=== PATIENT | male | born 1995 | race Caucasian/White ===

== ENCOUNTER 2017-06-02 16:05 | Emergency (ER) | payer OTHER ==
[~2017-06-02] VITALS: Ht 182.9 cm; Wt 71.0 kg
[2017-06-02 16:27] VITALS: Ht 182.9 cm; Wt 71.0 kg
--- NOTE | 2017-06-02 17:43 | DIAGNOSTIC IMAGING REPORT ---
MANDIBLE MIN 4 VIEWS ROUTINE CLINICAL HISTORY: 21 years-old Male presenting with Fall/right-sided mandible pain. TECHNIQUE: 4 views of the mandible were obtained. COMPARISON: None. FINDINGS: Paranasal sinuses and mastoid air cells grossly clear. The mandible is intact. Evidence of fracture or significant dental caries in the bilateral central incisors of the maxilla. IMPRESSION: 1. No evidence of mandibular fracture. 2. Evidence of fracture or significant dental caries in the bilateral maxillary central incisors. Electronically signed by: Chau Balderrama M.D. 06/02/2017 5:42 PM Dictated Date/Time: 06/02/2017 5:41 PM
--- NOTE | 2017-06-02 18:01 | DIAGNOSTIC IMAGING REPORT ---
L HAND MIN 3 VIEWS ROUTINE CLINICAL HISTORY: 21 years-old Male presenting with Fall/hand injury. TECHNIQUE: Frontal, oblique, and lateral views of the left hand were obtained. COMPARISON: None. FINDINGS: No acute fracture or malalignment. No advanced degenerative change. No radiographic soft tissue abnormality. IMPRESSION: No acute osseous injury. Electronically signed by: Chau Balderrama M.D. 06/02/2017 6:00 PM Dictated Date/Time: 06/02/2017 5:59 PM
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
[2017-06-02 18:45] VITALS: BP 130/90; PULSE 88; TEMP 36.7; O2SAT 96
== END 2017-06-02 18:46 | disposition home or self-care (01) ==
LOC: C.EDB 16:09 → C.EDD 18:46
DX: S00.81XA Abrasion of other part of head, initial encounter (principal); S60.222A Contusion of left hand, initial encounter; S02.5XXA Fracture of tooth (traumatic), initial encounter for closed fracture; W01.198A Fall on same level from slipping, tripping and stumbling with subsequent striking against other object, initial encounter